=== PATIENT | female | born 1985 ===

== ENCOUNTER 2018-04-23 18:54 | Emergency (ER) | payer SELFPAY ==
[2018-04-23 19:17] VITALS: BP 115/68; PULSE 58; TEMP 98.3; BMI 38.0
--- NOTE | 2018-04-23 19:39 | PDOC ---
History of Present Illness <Mira Moreno - Last Filed: 04/23/18 20:54> - General History Source: Patient Exam Limitations: No Limitations - History of Present Illness Initial Comments: 04/23/18 21:14 The patient is a 32 year old female with a significant PMH of hepatitis who presents to the emergency department with left ankle pain since earlier today. The patient states that she was outside walking when she inverted her ankle. She reports that she was able to walk on it afterwards and continue her work day. She states that her coworker put an demetrius bandage on it. The patient reports that she went home, iced and elevated her right foot but, her pain worsened at around 5:30 pm. The patient denies any knee pain. She denies any numbness, weakness, or tingling sensation. She denies any other symptoms .she denies any fever, chills, nausea, vomit, diarrhea, constipation or urinary symptoms. She denies any chest pain, shortness of breath, headache and dizziness. The patient denies any other complaints. <Danis Valenzuela - Last Filed: 04/23/18 21:15> - General Chief Complaint: Injury Stated Complaint: LEFT FOOT/ANKLE PAIN Time Seen by Provider: 04/23/18 19:28 Past History - Past Medical History COPD: No - Suicide/Smoking/Psychosocial Hx Smoking History: Never smoked Have you smoked in the past 12 months: No Information on smoking cessation initiated: No Hx Alcohol Use: No Drug/Substance Use Hx: No Substance Use Type: None <Mira Moreno - Last Filed: 04/23/18 20:54> <Danis Valenzuela - Last Filed: 04/23/18 21:15> - Past Medical History Allergies/Adverse Reactions: Allergies Allergy/AdvReac Type Severity Reaction Status Date / Time No Known Allergies Allergy Verified 04/23/18 18:55 Home Medications: Ambulatory Orders Azathioprine [Azasan] 75 mg PO DAILY 04/23/18 Review of Systems - Review of Systems Able to Perform ROS?: Yes Comments:: 04/23/18 21:14 GENERAL/CONSTITUTIONAL: No fever or chills. No weakness. HEAD, EYES, EARS, NOSE AND THROAT: No change in vision. No ear pain or discharge. No sore throat. CARDIOVASCULAR: No chest pain or shortness of breath. RESPIRATORY: No cough, wheezing, or hemoptysis. GASTROINTESTINAL: No nausea, vomiting, diarrhea or constipation. GENITOURINARY: No dysuria, frequency, or change in urination. MUSCULOSKELETAL: (+)right ankle pain s/p injury. No joint or muscle pain. No neck or back pain. SKIN: No rash NEUROLOGIC: No headache, vertigo, loss of consciousness, or change in strength/ sensation. ENDOCRINE: No increased thirst. No abnormal weight change. HEMATOLOGIC/LYMPHATIC: No anemia, easy bleeding, or history of blood clots. ALLERGIC/IMMUNOLOGIC: No hives or skin allergy. <Danis Valenzuela - Last Filed: 04/23/18 21:15> *Physical Exam - Vital Signs Last Vital Signs Temp Pulse Resp BP Pulse Ox 98.3 F 58 L 20 115/68 97 04/23/18 18:55 04/23/18 18:55 04/23/18 18:55 04/23/18 18:55 04/23/18 18:55 <Mira Moreno - Last Filed: 04/23/18 20:54> - Vital Signs Last Vital Signs Temp Pulse Resp BP Pulse Ox 98.3 F 58 L 20 115/68 97 04/23/18 18:55 04/23/18 18:55 04/23/18 18:55 04/23/18 18:55 04/23/18 18:55 - Physical Exam Comments: 04/23/18 21:15 GENERAL: The patient is in no acute distress. HEAD: Normal with no signs of trauma. EYES: PERRLA, EOMI, sclera anicteric, conjunctiva clear. ENT: Ears normal, nares patent, oropharynx clear without exudates. Moist mucous membranes. NECK: Normal range of motion, supple without lymphadenopathy, JVD, or masses. LUNGS: Breath sounds equal, clear to auscultation bilaterally. No wheezes, and no crackles. HEART:Regular rate and rhythm, normal S1 and S2 without murmur, rub or gallop. ABDOMEN: Soft, nontender, normoactive bowel sounds. No guarding, no rebound. No masses palpable. EXTREMITIES: (+)left ankle has 2+dp, minimally tender over first metatarsal and medial malleolus. Normal range of motion, no edema. No clubbing or cyanosis. No erythema, or tenderness. NEUROLOGICAL: Cranial nerves II through XII grossly intact. Normal speech. No focal neurological deficits. MUSCULOSKELETAL: Back non-tender to palpation, no CVA tenderness SKIN: Warm, Dry, normal turgor, no rashes or lesions noted. <Danis Valenzuela - Last Filed: 04/23/18 21:15> ED Treatment Course - Medications Given in the ED: ED Medications Discontinued Medications Generic Name Dose Route Start Last Admin Trade Name Lore PRN Reason Stop Dose Admin Ibuprofen 600 mg 04/23/18 19:49 04/23/18 19:52 Motrin - PO 04/23/18 19:50 600 mg ONCE ONE Administration <Danis Valenzuela - Last Filed: 04/23/18 21:15> Medical Decision Making - Medical Decision Making 04/23/18 20:54 Ms. Contreras is a 32-year-old otherwise healthy female presents emergency department with a complaint of ankle pain. Patient states that earlier today at approximately 1:30 or 2 PM while at work, she rolled her ankle. She was wearing 90s, did not trip did not fall or injure any other part of her body. The ankle was Demetrius wrapped by coworker. She was ambulatory , went home. She noticed that while at home when she awoke from her nap at approximately 5 PM her ankle was more painful and swollen. Patient presents for evaluation. On examination: Left foot is nonedematous upon my evaluation 2+ DP, 2+ PT. Sensation intact. Motor is intact. Patient has point tenderness to palpation of the medial malleolus as well as the proximal first metatarsal. , No obvious deformity noted. No proximal fibular tenderness to palpation. No limitation of range of motion of the knee. X-ray performed: X-ray does not demonstrate a fracture on my preliminary read. Patient given Motrin. Will discharged home with Aircast. Follow-up with primary care physician I told this patient that her x-ray will be reread in the morning by radiology. If there are any findings, we will contact her immediately. Clinical impression: Ankle sprain, initial presentation <Mira Moreno - Last Filed: 04/23/18 20:54> *DC/Admit/Observation/Transfer - Discharge Dispostion Decision to Admit order: No <Mira Moreno - Last Filed: 04/23/18 20:54> - Attestations Scribe Attestion: 04/23/18 21:15 Documentation prepared by Danis Valenzuela, acting as medical insurance claims specialist for Mira Moreno MD. <Danis Valenzuela - Last Filed: 04/23/18 21:15> Diagnosis at time of Disposition: Left ankle sprain Qualifiers: Encounter type: initial encounter Involved ligament of ankle: unspecified ligament Qualified Code(s): S93.402A - Sprain of unspecified ligament of left ankle, initial encounter - Discharge Dispostion Disposition: HOME Condition at time of disposition: Stable - Patient Instructions Printed Discharge Instructions: DI for Ankle Sprain Additional Instructions: Please read the [facility] Care Sheets describing your diagnosis. PLEASE NOTE we suggest at a minimum that you review all symptoms and final test results with a physician that will provide ongoing care for you. THANK YOU for allowing us to help begin your care of this latest issue. Keep in mind the treatment performed in the Emergency Department is NOT complete until you have followed up with your Doctor. You can use an Aircast or demetrius wrap as is comfortable for you Please ice and elevate year affected leg You can take tylenol or motrin for pain We want you to return to the ED as soon as possible if symptoms get worse or if you have any problems whatsoever. - Post Discharge Activity Forms/Work/School Notes: Back to Work
[2018-04-23] MEDS ORDERED: IBUPROFEN 600 MG TABLET (FP) PO ONE ×2 (19:49→19:51)
== END 2018-04-23 21:17 | disposition home or self-care (01) ==
LOC: FER 18:54
DX: S93.402A Sprain of unspecified ligament of left ankle, initial encounter (principal); X50.0XXA Overexertion from strenuous movement or load, initial encounter; Y93.01 Activity, walking, marching and hiking; Y92.89 Other specified places as the place of occurrence of the external cause
CPT/HCPCS: 73610-TC-LT-FY; 73630-TC-LT; 99282-25